=== PATIENT | female | born 1950 | race Caucasian/White ===

== ENCOUNTER 2017-06-21 17:53 | Emergency (ER) | payer MEDICARE ==
[2017-06-21 18:14] VITALS: TEMP 98.6
[2017-06-21] MEDS ORDERED: HYDROmorphone 1 MG/ML 1 ML SYRINGE IM STA (19:13)
[2017-06-21] MEDS ORDERED: ONDANSETRON 4 MG/2 ML VIAL IM STA (19:13)
[2017-06-21] MEDS ORDERED: KETOROLAC 30 MG/ML 1 ML VIAL IM STA (19:14)
--- NOTE | 2017-06-21 19:19 | ED ---
General Adult HPI - General Chief complaint: Extremity Problem,Nontraumatic Stated complaint: low back pain Time Seen by Provider: 06/21/17 18:15 Source: patient, RN notes reviewed Mode of arrival: wheelchair Limitations: no limitations - History of Present Illness Initial comments: This is a 66-year-old female presents emergency Department complaining of lower back pain. Patient states she's had for about a week and a half. Patient states [facility] and [facility] told her she had some sort of disc problem. Patient states she's been on steroids for a couple of days but today she moves her leg in a way that caused her more pain and the pain radiates down the back of her leg and now it so painful that she is unable to stand secondary to the pain. Patient denies any numbness or actual weakness. Patient states she has no urinary incontinence or urinary retention. Patient denies any direct trauma - Related Data Home Medications Medication Instructions Recorded Confirmed Aspirin EC [Ecotrin Low Dose] 81 mg PO DAILY 06/21/17 06/21/17 Biotin 5 mg PO DAILY 06/21/17 06/21/17 Cholecalciferol [Vitamin D3] 2,000 unit PO DAILY 06/21/17 06/21/17 Lisinopril [Prinivil] 20 mg PO DAILY 06/21/17 06/21/17 Multivitamins, Thera [Multivitamin 1 tab PO DAILY 06/21/17 06/21/17 (formulary)] Pantoprazole Sodium [Protonix] 40 mg PO DAILY 06/21/17 06/21/17 Turmeric Root Extract [Turmeric] 500 mg PO DAILY 06/21/17 06/21/17 Vit C/E/Zn/Coppr/Lutein/Zeaxan 1 cap PO BID 06/21/17 06/21/17 [Preservision Areds 2 Softgel] Vitamin B Complex 1 cap PO DAILY 06/21/17 06/21/17 predniSONE See Taper PO DAILY 06/21/17 06/21/17 Previous Rx's Medication Instructions Recorded Hydrocodone/Acetaminophen [[place] 1 each PO Q4HR PRN #20 tab 06/21/17 5-325] Allergies Allergy/AdvReac Type Severity Reaction Status Date / Time No Known Allergies Allergy Verified 06/21/17 18:59 Review of Systems ROS Statement: Those systems with pertinent positive or pertinent negative responses have been documented in the HPI. ROS Other: All systems not noted in ROS Statement are negative. Past Medical History Past Medical History: Hypertension Additional Past Medical History / Comment(s): chronic back pain History of Any Multi-Drug Resistant Organisms: None Reported Past Surgical History: Hysterectomy Additional Past Surgical History / Comment(s): jaw surgery Past Psychological History: No Psychological Hx Reported Smoking Status: Never smoker Past Alcohol Use History: Rare Past Drug Use History: None Reported General Exam - General Exam Comments Initial Comments: GENERAL Patient is well-developed and well-nourished. Patient is in mild distress. EYES Patient's pupils are equal and round. Extraocular motion is intact SKIN Unremarkable NEURO The patient is alert and oriented 3 PYSCH Patient has normal interpersonal interactions. MUSCULOSKELETAL Patient has no numbness or weakness patient has full range of motion of the legs but moving the left leg does cause her pain in the back which radiates down to her posterior knee Limitations: no limitations Course Vital Signs 06/21/17 18:11 Temperature 98.6 F Pulse Rate 87 Respiratory 20 Rate Blood Pressure 161/70 O2 Sat by Pulse 97 Oximetry Medical Decision Making - Medical Decision Making CT of the back shows no acute abnormalities but spondylosis andnarrowing. Patient is able to get a better and move around better than she did when she arrived. Disposition Clinical Impression: Sciatica Disposition: HOME SELF-CARE Condition: Good Prescriptions: Hydrocodone/Acetaminophen [[place] 5-325] 1 each PO Q4HR PRN #20 tab PRN Reason: Pain Referrals: Chau Black MD [Primary Care Provider] - 1-2 days Time of Disposition: 21:14
--- NOTE | 2017-06-21 20:59 | CT ---
EXAMINATION TYPE: CT lumbar spine wo con DATE OF EXAM: 06/21/2017 8:47 PM COMPARISON: NONE HISTORY: Lower back pain and left leg numbness. CT DLP: 1409.7 mGycm Automated exposure control for dose reduction was used. Unenhanced CT of the lumbar spine was performed. Bone and soft tissue window settings are submitted as well as coronal and sagittal reconstructions. The lumbar vertebra have normal alignment. There is narrowing of disc spaces throughout the lumbar sp ine and more severe from L3 to S1. There is multilevel vacuum disc phenomenon. There is hypertrophic facet arthropathy from L3 to S1. There is no compression fracture. There is no paraspinal mass. Poste rior elements are intact. The sacroiliac joints are intact. There is some spinal stenosis at L4-5 due to facet arthropathy and mild posterior disc bulging. IMPRESSION: Multilevel spondylosis. No fracture.
[2017-06-21 21:23] VITALS: BP 154/71; PULSE 80; RESP 18
== END 2017-06-21 21:23 | disposition home or self-care (01) ==
LOC: EC 17:53
DX: M54.30 Sciatica, unspecified side (principal); I10 Essential (primary) hypertension; Z79.82 Long term (current) use of aspirin; Z79.899 Other long term (current) drug therapy; Z90.710 Acquired absence of both cervix and uterus
CPT/HCPCS: 72131; 99283; 96372 ×3; J2405; J1885; J1170

== ENCOUNTER → 2020-09-29 | Outpatient (CLI) | payer MEDICARE ==
[2020-09-29 09:56] VITALS: BP 140/92; PULSE 67; RESP 18; TEMP 98.6
--- NOTE | 2020-09-29 10:16 | P.PAINCN ---
History of Present Illness - Reason for Consult Consult date: 09/29/20 - History of Present Illness At this is a 69 years old female with a chronic history of severe low back pain with radiation to the lower extremity started 3 years ago, she denies any initiating event and she reported that the pain radiates from the low back area towards the lower extremity bilaterally associated with numbness and tingling sensation, the pain is constant with some exacerbation, patient was started on Neurontin 100 mg every morning and 200 mg daily at bedtime and she reported that this helped her numbness and tingling sensation with some degree, she continued to have severe pain, she was evaluated by Dr. Hidalgo neurosurgeon, and he referred her for lumbar epidural steroid injection, patient denies any fever or night sweats she denies any motor or sensory deficit she denies any change in the bowel movement or urination Past Medical History Past Medical History: GERD/Reflux, Hypertension, Musculoskeletal Disorder Additional Past Medical History / Comment(s): chronic back pain, bone spurs in back History of Any Multi-Drug Resistant Organisms: None Reported Past Surgical History: Hysterectomy, Tonsillectomy Additional Past Surgical History / Comment(s): jaw surgery Past Anesthesia/Blood Transfusion Reactions: No Reported Reaction Past Psychological History: No Psychological Hx Reported Smoking Status: Never smoker Past Alcohol Use History: Rare Past Drug Use History: None Reported Medications and Allergies Home Medications Medication Instructions Recorded Confirmed Type Cholecalciferol [Vitamin D3] 2,000 unit PO DAILY 06/21/17 09/29/20 History Multivitamins, Thera [Multivitamin 1 tab PO DAILY 06/21/17 09/29/20 History (formulary)] Turmeric Root Extract [Turmeric] 500 mg PO DAILY 06/21/17 09/29/20 History Vit C/E/Zn/Coppr/Lutein/Zeaxan 1 cap PO BID 06/21/17 09/29/20 History [Preservision Areds 2 Softgel] Vitamin B Complex 1 cap PO DAILY 06/21/17 09/29/20 History lisinopriL [Prinivil] 20 mg PO DAILY 06/21/17 09/29/20 History Ascorbic Acid [Vitamin C] 500 mg PO DAILY 09/24/20 09/29/20 History Fluticasone Nasal [place] [Flonase 2 spr EA NOSTRIL DAILY 09/24/20 09/29/20 History Nasal [place]] Gabapentin [Neurontin] 100 mg PO DAILY 09/24/20 09/29/20 History Gabapentin [Neurontin] 200 mg PO HS 09/24/20 09/29/20 History Allergies Allergy/AdvReac Type Severity Reaction Status Date / Time No Known Allergies Allergy Verified 09/24/20 15:35 Physical Exam Vitals: Vital Signs Temp Pulse Resp BP Pulse Ox 09/29/20 09:48 98.6 F 67 18 140/92 97 Physical Examinations : -Constitutiona : Cooperative , not in acute distress . -HEENT : nech : supple , no Lymphadenopathy , normal thyroid size . : eyes : no ptosis , no icterus, no photo phobia . - neurologic : Cranial nerve II to XII intact , no focal neurological deffecit . -psychatric : alert , oriented X 3 , appropriate affect , intact judgment and insight . -Lymphatic : no Lymphadenopathy . - musculoskeltal : Lumber spine moter stegnth lower extremities ,thigh and legs 5/5 Right side , 5/5 Left side deep tendon reflexes : normal Knee Jerk , normal ankle Jerk lumber facet Loading Test =positive Right , posiutive Left Range of motion of the lumbar spine Flexion 30 degrees, extension 10 degrees strait leg raising test = positive at 30 degree on the right side and is negative on the left side Fabere test= positive Right , and negative LT . tenderness over the Sacroiliac joint on the Right , and Left sides . Results Comments: MRI of the lumbar spine= L4 5 spinal stenosis L4-L5 degenerative disc disease L4-L5 facet joint arthropathy Assessment and Plan Plan: Assessment and plan=1-lumbar radiculopathy. 2-lumbar spinal stenosis. 3-lumbar degenerative disc disease. 4-lumbar spondylosis with lumbar facet arthropathy without myelopathy. Patient could benefit from lumbar epidural steroid injection under fluoroscopy guidance at L4 5 levels Time with Patient: Greater than 30 PQRS Measure Charge Sheet Measure #130: Documentation of Current Meds in Medical Chart: Patient's medications documented in chart Measure #226: Tobacco Use: Screen & Cessation Intervention: Pt not a tobacco user Measure #111: Pneumonia Vaccination: Pneumococcal vaccine NOT administered or previously given Measure #47: Advance Care Plan: Advance care planning discussed & documented, pt chose/unable to give Measure #412: Opioid Treatment Agreement: No documentation of signed opioid treatment agreement Measure #408: Opioid Therapy Follow-up Evaluation: Patient had NO f/u eval minimum every 3 months during opioid therapy Measure #317: Preventitive Care & Scrn High Bld Press & F/U: Pre-hypertensive or hypertensive BP documented, pt will f/u with PCP Measure #128: Body Mass Index (BMI) Screening & Follow-up: BMI documented ABOVE normal parameters - f/u documented Measure #131: Pain Assessment & Follow-up: Pain positive & plan documented, Follow-up scheduled Measure #431: Unhealthy Alcohol Use Preventative Care & Scrn: Patient not identified as an unhealthy alcohol user PQRS Narrative: Smoking Status Never smoker Blood Pressure 140/92 Pain Intensity [Lower Back] 5 Scale Used Numeric (1 - 10) Hx Alcohol Use (MH) Yes Home Medications: Ambulatory Orders Cholecalciferol [Vitamin D3] 2,000 unit PO DAILY 06/21/17 Multivitamins, Thera [Multivitamin (formulary)] 1 tab PO DAILY 06/21/17 Turmeric Root Extract [Turmeric] 500 mg PO DAILY 06/21/17 Vit C/E/Zn/Coppr/Lutein/Zeaxan [Preservision [place] 2 Softgel] 1 cap PO BID 06/21/17 Vitamin B Complex 1 cap PO DAILY 06/21/17 lisinopriL [Prinivil] 20 mg PO DAILY 06/21/17 Ascorbic Acid [Vitamin C] 500 mg PO DAILY 09/24/20 Fluticasone Nasal [place] [Flonase Nasal [place]] 2 spr EA NOSTRIL DAILY 09/24/20 Gabapentin [Neurontin] 100 mg PO DAILY 09/24/20 Gabapentin [Neurontin] 200 mg PO HS 09/24/20
== END | disposition home or self-care (01) ==
LOC: PNWHC3 09:34
PROVIDERS: ATTEND Specialist
DX: M48.061 Spinal stenosis, lumbar region without neurogenic claudication (principal); M51.16 Intervertebral disc disorders with radiculopathy, lumbar region; M47.26 Other spondylosis with radiculopathy, lumbar region; K21.9 Gastro-esophageal reflux disease without esophagitis; I10 Essential (primary) hypertension; Z79.891 Long term (current) use of opiate analgesic; Z79.899 Other long term (current) drug therapy
CPT/HCPCS: 99211

== ENCOUNTER 2020-10-07 07:21 | Day surgery (SDC) | payer MEDICARE ==
[2020-10-05 14:06] VITALS: BMI 36.6
[2020-10-07] MEDS ORDERED: LACTATED RINGERS 1,000 ML IV SCH (07:30)
[2020-10-07 07:45] VITALS: TEMP 97.1
[2020-10-07] MEDS ORDERED: methylPREDNISolone ACETATE 40 MG/ML 1 ML VIAL ONE (07:54)
[2020-10-07] MEDS ORDERED: fentaNYL (PF) 50 MCG/ML 2 ML AMP ONE (07:54)
[2020-10-07] MEDS ORDERED: IOPAMIDOL M200 10 ML VIAL ONE (07:54)
[2020-10-07] MEDS ORDERED: MIDAZOLAM 2 MG/2 ML VIAL ONE (07:54)
--- NOTE | 2020-10-07 08:04 | P.PCN ---
Date of Procedure: 10/07/20 Description of Procedure: PREOPERATIVE DIAGNOSIS: lumbar radiculopathy POSTOPERATIVE DIAGNOSIS: Lumbar radiculopathy PROCEDURE 1. Lumbar epidural steroid injection under fluoroscopic guidance at the L4-L5 level. 2. Lumbar epidurogram. Imaging: Fluoroscopy was used, images where saved to the medical record ANESTHESIA: Local with 1% lidocaine 5 ml and 1 mg of Versed 50 rogerio grams of fentanyl EBL: Minimal PROCEDURE INDICATION: The patient with low back pain and radiculitis symptoms unresponsive to conservative treatment. Fluoroscopy was used to optimize visualization of the needle placement and to maximize safety. PROCEDURE DESCRIPTION / TECHNIQUE: The patient was seen and identified in the preoperative area. Risks, benefits, complications including but not limited to infections ,bleeding ,allergic reaction to the medications, nerve damage and incomplete pain relief , as well as alternatives to the procedure were discussed with the patient. The patient agreed to proceed with the procedure and signed the consent. IV was started, and vital signs were stable. Patient was taken to the OR and time out was completed. The patient was placed in the prone position on procedure table and a pillow was placed under the abdomen to reduce lumbar lordosis. The lumbosacral area was prepped and draped in the usual sterile fashion. Vitals were closely monitored during the procedure. Using anterior-posterior fluoroscopy, the L 45 interlaminar space was identified and the skin over this site was marked and then infiltrated with 1% lidocaine subcutaneously. Subsequently, a 20-gauge Tuohy epidural needle was inserted and advanced toward the epidural space using the Loss of resistance technique and guided by AP and lateral fluoroscopy. The correct needle position in the epidural space was verified with the injection of 1 mL of Omnipaque 180 contrast to observe an acceptable epidurogram, after negative aspiration for blood and CSF and in the absence of paresthesias. Again after negative aspiration, a 3 ml mixture containing 40mg of depomedrol and 2 ml of preservative free Normal Saline was injected and a washout of epidurogram was seen. Needle was withdrawn intact, skin was cleansed, and bandages were applied. COMPLICATIONS: None DISPOSITION / PLANS: The patient was placed in a supine position and transferred to the recovery area in a stable condition for observation. There was no evidence of lower extremity motor or sensory deficit after the procedure. Patient was discharged from the recovery room after meeting discharge criteria. Home discharge instructions were given to the patient by the staff. The patient was reexamined prior to discharge. We will repeat the injection in 2 weeks
[2020-10-07] MEDS ORDERED: IV FLUID CONTINUATION 800 ML IV ONE (08:08)
--- NOTE | 2020-10-07 08:13 | FL ---
Fluoroscopy History: LUMBAR EPIDURAL STEROID INJ 7 SEC FL, 1 FILM
[2020-10-07 08:14] VITALS: RESP 20
[2020-10-07 08:24] VITALS: BP 140/69; PULSE 73
== END 2020-10-07 08:37 | disposition home or self-care (01) ==
LOC: ORPAIN 07:21
PROVIDERS: ATTEND Hospitalist
DX: M54.16 Radiculopathy, lumbar region (principal); Z90.710 Acquired absence of both cervix and uterus
CPT/HCPCS: 62323; J2250; J1030; J3010; Q9966

== ENCOUNTER → 2020-10-25 | Outpatient (CLI) | payer MEDICARE ==
[2020-10-25 08:47] VITALS: BP 162/87; PULSE 89; RESP 18; TEMP 97.8
--- NOTE | 2020-10-25 12:27 | P.PAINPG ---
Subjective Progress Note Date: 10/25/20 Principal diagnosis: Lumbar back pain Mrs. Mitchell is a 69-year-old pleasant female came to the [facility] pain management clinic for follow-up visit after L4-L5 epidural steroid injection on 10/07/2020. Patient had more than 70% pain relief for more than 2 weeks duration. Later on pain gradually started. Today she is complaining a lumbar back pain as aching, throbbing, spasm type of pain. She rated her pain is 7 out of 10 in severity. Sometimes pain radiating to her lower extremities. She denied any red flag symptoms related to pain. Activities making her pain worse. Pain medications, and intervention procedures helping her in relieving her pain. She can able to perform her activities with the help of medications, and intervention procedures. 13 Review of systems negative except as mentioned in the history of present illness Objective - Vital Signs Vital signs: Vital Signs Temp 97.8 F 10/25/20 08:44 Pulse 89 10/25/20 08:44 Resp 18 10/25/20 08:44 BP 162/87 10/25/20 08:44 Pulse Ox 98 10/25/20 08:44 - Exam General: well-developed, well-nourished, no acute distress. HEENT: Normocephalic, atraumatic. Neck: supple, trachea midline CVS: Regular rate and rhythm Pulmonary : Not in labored breathing. Neurologic: No noticeable focal neurological deficits. Psychiatric: Appropriate mood and affect. Musculoskeletal: Upper extremity : Normal strength and range of motion, and sensation grossly intact.. Lower extremity: Normal strength and decreased range of motion secondary to pain. Sensation grossly intact Lumbar spine range of motion: Decreased in flexion, extension, and lateral bending secondary to pain Lumbar paraspinal muscle tenderness: Positive Lumbar facet loading test: Positive [place] leg raising test: Not done secondary to pain Sacroiliac joint tenderness: Negative Lumbar spine trigger points : Positive. Assessment and Plan Assessment: #1 lumbar spondylosis without myelopathy #2 lumbar spine stenosis #3 lumbar radiculopathy #4 myofascial pain syndrome, and chronic pain syndrome Plan: 1. Diagnoses, prognoses, and multiple treatment options including but not limited to physical therapy, interventional therapies, adjunct medical therapies, and surgical options were discussed with the patient and all questions were answered to the patients satisfaction. 2. Treatment plan agreement: Patient was discussed regarding the medication side effects, and complications associated medications. 3. The patient was counseled on importance of regular exercise in controlling chronic pain as well as in terms of overall well-being. Patient counseled regarding the importance of regular exercise, and minimizing the intake of carbohydrates, and process foods which may help in decreasing the inflammation, and helps overall well-being. 4. Consultations: Continue physical therapy exercises at home 5. Investigations: MAPS- appropriate , and urine drug test- not done. 6. Diagnostic studies: None. 7. Interventional procedures: L4-L5 epidural steroid injection #2 8. Medications: None from the pain clinic 9. Morphine milligram equivalent (MME) doses: 0 from the pain clinic. 10. Durable Medical Equipment (DME) : TENS units. 11. Disposition: Scheduled for follow-up in 4 weeks duration. I have spent 20 minutes with this patient. Including but not limited to: [id number] time, on physical examination, electronic medical record review, counseling, and documentation. The PQRS measured charge sheet done separately PQRS Measure Charge Sheet PQRS Narrative: Smoking Status Never smoker Blood Pressure 162/87 Pain Intensity [Lower Back] 6 Scale Used Numeric (1 - 10) Hx Alcohol Use (MH) Yes: RARE Home Medications: Ambulatory Orders Cholecalciferol [Vitamin D3] 2,000 unit PO DAILY 06/21/17 Multivitamins, Thera [Multivitamin (formulary)] 1 tab PO DAILY 06/21/17 Turmeric Root Extract [Turmeric] 500 mg PO DAILY 06/21/17 Vit C/E/Zn/Coppr/Lutein/Zeaxan [Preservision [place]reds 2 Softgel] 1 cap PO BID 06/21/17 Vitamin B Complex 1 cap PO DAILY 06/21/17 lisinopriL [Prinivil] 20 mg PO DAILY 06/21/17 Ascorbic Acid [Vitamin C] 500 mg PO DAILY 09/24/20 Fluticasone Nasal [place] [Flonase Nasal [place]] 2 spr EA NOSTRIL DAILY PRN 09/24/20 Gabapentin [Neurontin] 100 mg PO DAILY 09/24/20 Gabapentin [Neurontin] 200 mg PO HS 09/24/20 Controlled Substance Measures - Controlled Substance Measures Is patient prescribed a controlled substance at discharge?: No When asked, does pt state using other controlled substances?: No If prescribed controlled substance>3 days was MAPS reviewed?: No If Rx opioid, was Start Talking consent form obtained?: No If opioid is for acute pain is fill amount 7 days or less?: No Was information provided regarding opioid addiction?: Yes
== END ==
LOC: PNWHC3 08:19
DX: M47.26 Other spondylosis with radiculopathy, lumbar region (principal); M48.061 Spinal stenosis, lumbar region without neurogenic claudication; M79.18 Myalgia, other site; G89.4 Chronic pain syndrome
CPT/HCPCS: 99211